=== PATIENT | female | born 1990 | race Asian ===

== ENCOUNTER 2025-05-23 13:18 | Emergency (ER) | payer MEDICAID, SELFPAY ==
[2025-05-23 13:19] VITALS: BMI 42.5
[2025-05-23 14:03] VITALS: BP 133/88; PULSE 98; RESP 18; TEMP 37.4; O2SAT 99
--- NOTE | 2025-05-23 14:06 | XR_ITS ---
Examination: Complete OB ultrasound, less than 14 weeks, transabdominal Date and time of exam: May 23, 2025 1638 hours INDICATIONS: Vaginal bleeding and cramping beginning one week ago Technique: Obstetrical ultrasound images less than 14 weeks performed via transabdominal imaging Findings: A normal shaped single intrauterine gestation is present in the uterus. CRL 1.8 cm corresponds to 8 weeks 2 days gestational age Cardiac motion 178 BPM Ultrasonographic survey of visible and placental structures unremarkable. Amniotic fluid volume appears appropriate for this estimated gestational age. Right ovary 3.2 cm arterial flow. Left ovary 3.5 cm arterial flow IMPRESSION: Viable intrauterine gestation 8 weeks 2 days.
[2025-05-23 14:33] LABS: Basophils # (Auto) 0.0 Thou/mm3 (0.0-0.2); Basophils % (Auto) 0 % (0-2.5); Eosinophils # (Auto) 0.2 Thou/mm3 (0.0-0.5); Eosinophils % (Auto) 3 % (0-10); Hematocrit 39.1 % (36.0-46.0); Hemoglobin 12.5 g/dL (12.0-16.0); Immature Granulocytes Auto 0.02 Thou/mm3 (0.00-0.00); Lymphocytes # (Auto) 2.0 Thou/mm3 (1.0-4.8); Lymphocytes % (Auto) 23 % (10-50); Mean Corpuscular HGB Conc 32.0 g/dl (31.0-37.0); Mean Corpuscular Hemoglobin 21.2 pg (25.0-35.0); Mean Corpuscular Volume 66 fL (80-100); Monocytes # (Auto) 0.4 Thou/mm3 (0.0-0.8); Monocytes % (Auto) 5 % (0-12); Neutrophils # (Auto) 5.8 Thou/mm3 (1.8-7.7); Neutrophils % (Auto) 69 % (37-80); Nucleated Red Blood Cell # 0.00 Thou/mm3 (0.00-0.00); Nucleated Red Blood Cell % 0 /100 WBC (0); Platelet Count 309 Thou/mm3 (140-440); RDW Standard Deviation 35.2 fL (36.4-46.3); Red Blood Count 5.90 Miln/mm3 (4.00-5.20); White Blood Count 8.4 Thou/mm3 (3.6-11.0)
[2025-05-23 14:43] LABS: Collection Type, Urine Voided
[2025-05-23 15:00] LABS: Bacteria,Urine Rare; Bilirubin,Urine Negative (Negative); Blood,Urine Negative (Negative); Clarity,Urine Clear (Clear/Hazy); Color,Urine Yellow (Lt Yel-Yel); Glucose, Urine 4+ (Negative); Ketones,Urine Trace (Negative); Leukocyte Esterase,Urine Positive (Negative); Nitrite,Urine Negative (Negative); PH,Urine 6.0 (5.0-7.0); Protein,Urine Trace (Neg - Trace); RBC,Urine 5 /hpf (0-3); Specific Gravity,Urine 1.025 (1.001-1.035); Squamous Epithelial Cell,Urine 8 /hpf (0-5); Urobilinogen,Urine Negative mg/dL (0.0-1.0); WBC,Urine 17 /hpf (0-5)
[2025-05-23 15:01] LABS: Alanine Aminotransferase 79 U/L (10-49); Albumin, Serum 4.8 gm/dL (3.5-5.0); Albumin/Globulin Ratio 1.5 (1.2-2.2); Alkaline Phosphatase 66 U/L (46-116); Anion Gap 12 (7-16); Aspartate Amino Transferase 63 U/L (0-34); BUN/Creatinine Ratio 8 Ratio (12-20); Bilirubin,Total 0.2 mg/dL (0.3-1.2); Blood Urea Nitrogen < 5 mg/dL (9-23); Calcium 10.2 mg/dL (8.3-10.6); Calcium (Corrected) 10.2 mg/dL (8.5-10.1); Carbon Dioxide 21.3 mMol/L (20.0-31.0); Chloride 103 mMol/L (98-107); Creatinine (Component) 0.6 mg/dL (0.6-1.3); Estimated Creatinine Clearance 145.0 mL/min (>60); Globulin 3.2 gm/dL (2.3-3.5); Glucose 207 mg/dL (74-106); Osmolality,Calculated 275 (275-295); Potassium 3.8 mMol/L (3.4-5.1); Sodium 136 mMol/L (136-145); Total Protein 8.0 gm/dL (5.7-8.2); eGFR > 60 See Note
[2025-05-23 15:34] LABS: Beta HCG,Quantitative 32643 mIU/mL (<5.0)
--- NOTE | 2025-05-23 15:52 | PD.EDPREG ---
ED OB Contraction Preg RMI/HPI General Chief complaint: Urogenital-Female Stated complaint: SOTTING FOR 8 DAYS AND + PREG Time Seen by Provider: 05/23/25 13:24 Arrival date/time: 05/23/25 13:18 This is a case of 35-year-old female with history of diabetes came in in the emergency room due to on and off vaginal spotting for 8 days now vaginal bleeding no blood clots patient is 8 weeks 6 para 5 no checkup associated symptoms pelvic cramping no other symptoms noted Limitations: no limitations Related Data Previous Rx's ?Medication ?Instructions ?Recorded metformin 1,000 mg tablet 1,000 mg PO BIDWMEAL 60 days #120 05/23/23 tabs dicyclomine 20 mg tablet 20 mg PO QID PRN abdominal pain 03/04/24 #30 tabs ibuprofen 800 mg tablet 800 mg PO TID PRN pain #30 tabs 03/04/24 nitrofurantoin 100 mg PO BID #20 caps 05/23/25 monohydrate/macrocrystals 100 mg capsule (Macrobid) Allergies Allergy/AdvReac Type Severity Reaction Status Date / Time blueberry Allergy Severe Swelling Verified 05/23/25 13:21 of Lip/Tongue/Throat hydroxyprogesterone (From Allergy Severe Hives Verified 05/23/25 13:21 Raysa) peach Allergy Severe Swelling Verified 05/23/25 13:21 of Lip/Tongue/Throat Review of Systems Review of Systems Systems Reviewed: All systems reviewed, normal except as documented Constitutional Constitutional: Reports system reviewed and no additional complaints, except as documented and Reports as per HPI Cardiovascular Cardiovascular: Reports system reviewed and no additional complaints, except as documented and Reports as per HPI Respiratory Respiratory: Reports system reviewed and no additional complaints, except as documented and Reports as per HPI Gastrointestinal Gastrointestinal: Reports system reviewed and no additional complaints, except as documented and Reports as per HPI Musculoskeletal Musculoskeletal: Reports system reviewed and no additional complaints, except as documented and Reports as per HPI Neurologic Neurologic: Reports system reviewed and no additional complaints, except as documented and Reports as per HPI Past Medical History Past Medical History NEUROLOGIC: Negative Neurological Disorders CARDIAC: Negative Cardiac Disorders or Congestive Heart Failure RESPIRATORY: Positive Asthma (does not have meds prescribed); Negative Chronic Obstructive Pulmonary Disease (COPD), Bronchitis, Emphysema, Pneumonia, Pulmonary Fibrosis, Tuberculosis, Pulmonary Embolism, Pulmonary Edema or Sleep Apnea GASTROINTESTINAL: Negative Gastrointestinal Disorders, Hepatitis or Colorectal Cancer GENITOURINARY: Positive Genitourinary Disorders and Kidney Stones (19 years old); Negative Renal Disease or Prostate Cancer REPRODUCTIVE: Positive Previous Pregnancies; Negative Breast Cancer, Endometriosis, Genital Herpes, Gonorrhea, Pelvic Inflammatory Disease, Syphilis, Testicular Cancer or Uterine Prolapse MUSCULOSKELETAL: Negative Musculoskeletal Disorders or Carpal Tunnel Syndrome ENDOCRINE: Positive Endocrine Disorders; Negative Diabetes Mellitus Type 1 or Diabetes Mellitus Type 2 HEMATOLOGIC: Positive Anemia (high school); Negative Blood Disorders, Leukemia, Hemophilia, Thalassemia, Sickle Cell Disease or Clotting Problems PSYCHO/SOCIAL: Positive Depression (with daughter 2021); Negative Post Traumatic Stress Disorder OTHER HISTORY: Negative Hospitalization, Autoimmune Disease, Down Syndrome, Developmental Delay, Shingles, Falls, Blood Transfusions, Blood Transfusion Reaction, Anesthesia Reactions, Organ Transplant, Chemotherapy, Radiation Therapy, Hyperbaric Therapy, MRSA, VRSA, Vancomycin-Resistant Enterococci, Human Immunodeficiency Virus (HIV), Chicken Pox, Measles, Mumps, Rubella ([place] Measles), Pertussis, Clostridium Difficile, Cancer, Breast Cancer, Cervical Cancer, Colorectal Cancer, Lung Cancer, Ovarian Cancer, Prostate Cancer or Testicular Cancer Family History FAMILY HISTORY: Positive Family Cancer; Negative Family Psychiatric Problems, Family Respiratory Disorders, Family Cardiac Disorders, Family Gastrointestinal Problems, Family Surgery or Family Anesthesia Reaction Surgical History SURGICAL: Negative Cardiac Surgery, Endocrine Surgery, Ear Surgery, Abdominal Surgery, Nephrectomy, Joint Replacement, Amputation, Open Reduction Internal Fixation, Arthroscopy, Neurologic Surgery, Brain Shunt, Lumpectomy, Tubal Ligation, Section, Vasectomy or Organ Transplant Social History SMOKING STATUS: Never smoker ED Exam General Limitations: Present no limitations General appearance: Present alert, in no apparent distress and other (Patient is awake alert oriented not in distress nontoxic looking well-hydrated well-nourished) Head Head exam: Present atraumatic, normocephalic and normal inspection Eye Eye exam: Present normal appearance, PERRL and EOMI ENT ENT exam: Present normal exam, normal oropharynx and mucous membranes moist Neck Neck exam: Present normal inspection, full ROM and trachea midline; Absent tenderness, meningismus, lymphadenopathy or thyromegaly Chest Chest inspection: Present normal inspection and symmetric chest wall rise; Absent tenderness Respiratory Respiratory exam: Present normal lung sounds bilaterally; Absent respiratory distress, wheezes, stridor, accessory muscle use or prolonged expiratory phase Cardiovascular Cardiovascular exam: Present regular rate, normal rhythm and normal heart sounds; Absent bradycardia, tachycardia, irregular rhythm, systolic murmur or diastolic murmur Abdominal Exam Abdominal exam: Present soft, normal bowel sounds and other (Reviewed uterus no CVA tenderness); Absent distention, tenderness, guarding, rebound, rigidity, diminished bowel sounds, hyperactive bowel sounds, hypoactive bowel sounds or organomegaly Extremities Exam Extremities exam: Present normal inspection and full ROM Back Exam Back exam: Present normal inspection and full ROM Neurological Exam Neurological exam: Present alert, oriented X3, CN II-XII intact, normal gait and reflexes normal; Absent motor sensory deficit Psychiatric Psychiatric exam: Present normal affect and normal mood Skin Skin exam: Present warm, dry, intact and normal color Course Quality Measures none Orders Category Date Time Status US OB <= 14 weeks fetus Stat Exams 05/23/25 14:06 Completed ABO/RH Type Stat Lab 05/23/25 14:22 Completed Beta HCG,Quantitative Stat Lab 05/23/25 14:22 Completed CBC Stat Lab 05/23/25 14:22 Completed CMP [Comprehensive Metabolic Panel] Stat Lab 05/23/25 14:22 Completed Urinalysis Stat Lab 05/23/25 14:30 Completed Vital Signs Vital signs: Vital Signs Temperature 99.3 F 05/23/25 14:03 Pulse Rate 98 05/23/25 14:03 Respiratory Rate 18 05/23/25 14:03 Blood Pressure 133/88 H 05/23/25 14:03 Pulse Oximetry (%) 99 05/23/25 14:03 Oxygen Delivery Method Room Air 05/23/25 14:03 Oxygen saturation is 99% in room air OB/Uterine Contractions MDM Narrative MDM Narrative:: This is a case of 35-year-old female with history of diabetes came in in the emergency room due to on and off vaginal spotting for 8 days now vaginal bleeding no blood clots patient is 8 weeks 6 para 5 no checkup associated symptoms pelvic cramping no other symptoms noted physical examination patient is awake alert oriented not in distress nontoxic looking well-hydrated well-nourished excellent skin turgor lungs sound is clear no crackles no rales no retraction no stridor heart normal rate regular rhythm no murmur abdominal exam is benign nonsurgical no guarding no rebound no rigidity no tenderness gravid uterus no CVA tenderness the rest of the physical examination neurological exam is normal and unremarkable blood test showed no leukocytosis no anemia kidney and liver function is normal no electrolyte imbalance patient glucose is 207 at this point we will not treat blood sugar of 207 patient will just need to continue the medication for diabetes and will follow-up with PCP to be referred to adjunct faculty for medical terminology for further evaluation and treatment and to control her diabetes patient urinalysis showed WBC and RBC in urine suggestive of urinary tract infection patient was discharged with Macrobid to be taken for 10 days patient is B+ patient beta-hCG [id number] patient pelvic ultrasound showed 8 weeks with heart tone of 178 at this point patient is stable to be discharged patient will follow-up with PCP in 2 days for reevaluation she is well-informed to see OB director of personnel in 2 days for checkup and for threatened in early if not seen in 2 days return to the emergency room for repeat pelvic ultrasound and beta-hCG pelvic rest no sex until cleared by primary care physician continue multivitamin is advised overall patient condition is stable patient will be discharged home in stable condition return precaution to ER was advised for any worsening symptoms or any emergent concern Patient was discharged with comfortable condition walking with stable gait. Patient verbalized no further complains explained diagnosis and answered patient question. Patient is comfortable with the proposed management plan including the need to follow up with his/her primary care physician and any specialist if applicable Discussed patient for any urgent condition or worsening sx, He/She needed to go to emergency room immediately or call 911. Patient acknowledge the responsibility to follow up as instructed and to monitor her/his symptoms. For any persistence of the symptoms for more than 3-5 days return precaution advised. Discussed the result of the test and was given printed discharge instruction Patient data External records reviewed:: [facility] previous records Clinical information provided by:: patient Social determinants that could affect healthcare access:: none Patient has the following chronic illnesses:: None How is presenting disease/condition affected by chronic disease/condition?: no chronic disease Evaluation data The following diagnostics were reviewed and interpreted by me:: lab results and radiology exam(s) Lab and/or radiology exams considered but not ordered:: Reviewed Interpretation Summary: Reviewed Medications / Prescriptions Medications or Prescriptions considered but not ordered:: Given Medication administrations:: Given Consultations Consultation(s) initiated? (list below): No Diagnosis OB Contractions Differential Diagnosis: other (Threatened in early ) Most likely diagnosis given after review of the tests above:: Threatened in early Admission Indicated Admission indicated?: not indicated Explain why admission is indicated or not indicated:: Not indicated Admission Request Was there a request for admission?: No Admission Attestation Admission request attestation: Not indicated Disposition Plan Disposition Plan: Discharge Discharge Attestation Discharge Attestation: The patient and all family members were given an opportunity to ask questions and understood the discharge instructions. Discharge instructions specifically effects, indications for sooner follow up or return to the emergency department, and the expected course of current diagnosis. Patient condition: Stable Discharge Plan Plan Patient Disposition: HOME (Self Care) Patient condition on transfer: Stable Prescriptions/Referrals Prescriptions/Med Rec: New nitrofurantoin monohyd/m-cryst [Macrobid] 100 mg capsule 100 mg PO BID Qty: 20 0RF Rx Instructions: must administer with a meal/food No Action dicyclomine 20 mg tablet 20 mg PO QID PRN (Reason: abdominal pain) Qty: 30 0RF ibuprofen 800 mg tablet 800 mg PO TID PRN (Reason: pain) Qty: 30 0RF metformin 1,000 mg tablet 1,000 mg PO BIDWMEAL 60 Days Qty: 120 2RF Referrals: No Primary/Family,Physician [Primary Care Provider] - In 1 week Problem List Clinical Impression: , threatened, early , Urinary tract infection, Uncontrolled diabetes mellitus Patient/Caregiver Discharge Instructions Education Materials: Urinary Tract Infections in Women, Diabetes: Living Your Life, ED Possible Miscarriage ... Additional Instructions: Follow-up with your primary care physician in 2 days for reevaluation it is very important to see an OB director of personnel for further evaluation and treatment of your threatened in early and for your checkup for any worsening symptoms or any emergent concern call 911 or go to the nearest emergency room it is very important to be referred to adjunct faculty for medical terminology for your uncontrolled diabetes monitor your blood sugar twice a day and if greater than 250 or less than 80 or become symptomatic return to the emergency room immediately or call 911 diabetic diet is advised finish the course of antibiotic it is very important to see an OB director of personnel in 2 days if not return to the emergency room in 2 days for repeat pelvic ultrasound and beta-hCG increase water intake keep hydrated pelvic rest no sex until cleared by primary care physician continue your multivitamin Print Language: Scottish Stand Alone Forms: Rukhsana Award Info., Patient Portal Info Letter PA/DIGITAL FORENSIC ANALYST Supervising Physician GALLITO/DIGITAL FORENSIC ANALYST Supervising Physician: dr [email or web address]
[2025-05-23 17:36] LABS: Path Review Blood Smear Sent to Pathologist
== END 2025-05-23 17:00 | disposition home or self-care (01) ==
PROVIDERS: Nurse Practitioner Family; Emergency Provider Emergency Medicine
DX: O20.0 Threatened abortion (principal); O23.41 Unspecified infection of urinary tract in pregnancy, first trimester; N39.0 Urinary tract infection, site not specified; O24.111 Pre-existing type 2 diabetes mellitus, in pregnancy, first trimester; E11.8 Type 2 diabetes mellitus with unspecified complications; Z79.84 Long term (current) use of oral hypoglycemic drugs; Z3A.08 8 weeks gestation of pregnancy
CPT/HCPCS: 36415; 76801; 80053; 81001; 84702; 85025; 86900; 86901; 99283